=== PATIENT | male | born 1990 | race Caucasian/White ===

== ENCOUNTER 2020-04-20 19:20 | Emergency (ER) | payer OTHER ==
[~2020-04-20] VITALS: Ht 175.3 cm; Wt 81.7 kg
[~2020-04-20 19:20] MED LIST: ANTIBIOTICS
[2020-04-20] MEDS ORDERED: FLEXERIL PO (21:52)
[2020-04-20] MEDS ORDERED: NORCO 5-325 TA1 EAC2 PO (21:52)
[2020-04-20 21:59] VITALS: BP 132/64
== END 2020-04-20 21:59 | disposition home or self-care (01) ==
LOC: M.ERS 19:20
DX: S01.81XA Laceration without foreign body of other part of head, initial encounter (principal); S39.012A Strain of muscle, fascia and tendon of lower back, initial encounter; Z88.1 Allergy status to other antibiotic agents; V89.2XXA Person injured in unspecified motor-vehicle accident, traffic, initial encounter; Y93.89 Activity, other specified; Y92.89 Other specified places as the place of occurrence of the external cause; Y99.8 Other external cause status